=== PATIENT | female | born 1960 | race Caucasian/White ===

== ENCOUNTER → 2019-05-24 | Outpatient (CLI) | payer OTHER | LOC: CAT 10:23 | DX: Z13.6 Encounter for screening for cardiovascular disorders (principal); I25.10 Atherosclerotic heart disease of native coronary artery without angina pectoris; E80.0 Hereditary erythropoietic porphyria ==

== ENCOUNTER → 2019-07-29 | Outpatient (CLI) | payer BC, OTHER | LOC: SJCVCIMAG 06-14 15:35 | PROVIDERS: ATTEND Internal Medicine Cardiovascular Disease | DX: R94.31 Abnormal electrocardiogram [ECG] [EKG] (principal); R06.09 Other forms of dyspnea; I10 Essential (primary) hypertension; E78.00 Pure hypercholesterolemia, unspecified ==